=== PATIENT | female | born 2000 | race Caucasian/White ===

== ENCOUNTER 2024-09-07 12:47 | Outpatient (CLI) | payer BC, SELFPAY ==
--- NOTE | 2024-09-07 13:00 | CRLHL7_ITS ---
For Patients: As a result of the Cures Act, medical imaging exams and procedure reports are released immediately into your electronic medical record. You may view this report before your referring provider. If you have questions, please contact your health care provider. OB ULTRASOUND INDICATION: Dating, viability. TECHNIQUE: Real time whatley scale imaging of the fetus was performed. transvaginal imaging performed. LMP: 07/12/2024. DEDRA by LMP: 04/18/2025. GA: 8 w, 1 d. Previous US: No. CRL: 1.6 cm. 8 w 0 d. DEDRA: 04/19/2025. FHR: 167 BPM. Gestational sac: 2.9 cm. Appears within normal limits. Yolk sac: 3.2 mm. Appears within normal limits. Right ovary: 3.6 x 2.2 x 1.8 cm. CL. Left ovary: 2.5 x 1.2 x 1.5 cm. CL. IMPRESSION: Single living intrauterine measuring 8 weeks 0 days and sonographic due date 04/19/2025. Drew Rossi M.D. Diagnostic Radiologist [email or web address] STEVO/Dictated by: Drew Rossi MD @ 09/07/2024 8:55:00 PM (Electronically Signed)
== END 2024-09-07 12:48 | disposition home or self-care (01) ==
LOC: US 12:48
PROVIDERS: Visit Provider Advanced Practice Midwife
DX: Z34.91 Encounter for supervision of normal pregnancy, unspecified, first trimester (principal); Z3A.08 8 weeks gestation of pregnancy
CPT/HCPCS: 76817

== ENCOUNTER 2024-09-07 13:54 | Outpatient (CLI) | payer BC, SELFPAY ==
[2024-09-07 20:16] LABS: Chlamydia DNA Amplified* NOT DETECTED (No Detected); GC DNA Amplified* NOT DETECTED (No Detected)
== END 2024-09-07 13:55 | disposition home or self-care (01) ==
PROVIDERS: Visit Provider Advanced Practice Midwife
DX: Z34.91 Encounter for supervision of normal pregnancy, unspecified, first trimester (principal); Z3A.08 8 weeks gestation of pregnancy
CPT/HCPCS: 83020; 83021; 84439; 84443; 85660; 86592; 86703; 86704; 86706; 86762; 86787; 86803; 86850; 86900; 86901; 87086; 87340; 87491; 87591

== ENCOUNTER 2024-11-06 14:04 | Outpatient (CLI) | payer BC, SELFPAY | END 2024-11-06 14:05 | disposition home or self-care (01) | LOC: NFLDREF 11-11 11:49 | PROVIDERS: Visit Provider Advanced Practice Midwife | DX: Z34.92 Encounter for supervision of normal pregnancy, unspecified, second trimester (principal); Z83.49 Family history of other endocrine, nutritional and metabolic diseases; Z3A.16 16 weeks gestation of pregnancy | CPT/HCPCS: 84443 ==

== ENCOUNTER 2024-12-03 12:14 | Outpatient (CLI) | payer BC, SELFPAY ==
--- NOTE | 2024-12-03 12:15 | CRLHL7_ITS ---
For Patients: As a result of the 21st Century Cures Act, medical imaging exams and procedure reports are released immediately into your electronic medical record. You may view this report before your referring provider. If you have questions, please contact your health care provider. LMP: 07/12/2024. DEDRA by LMP: 04/18/2025. GA: 20w, 4d. Single. INDICATION: anatomy scan. CERVIX: Visualized. Measurement: 4.3 TA. POSITIONING: Breech/dyan breech. AMNIOTIC FLUID: 5.8 cm SDP. PLACENTA: Technique: Transabdominal. PLACENTA POSITION: Anterior. Placenta tip to internal os: 4.4 cm. Placental insertion: Central. DOPPLER: heart rate: 139 bpm. Umbilical cord: 3-vessel cord. Biometry: BPD: 4.9 cm. 20w, 6d, 61 percent. HC: 17.6 cm. 20w, 1d, 21 percent. AC: 16.2 cm. 21w, 2d, 66 percent. FL: 3.3 cm. 20w, 1d, 29 percent. FL/AC ratio: 20.24 percent. HC/AC ratio: 1.09. EFW: 372.14 g. Weight: 0 lbs, 13 oz. age by this US: 20w, 5d. DEDRA by this US: 04/17/2025. Percentile by DEDRA: 53 percent. SURVEY: Observed Structures Cerebellum: Yes. 2.1 cm; 21w 1d. Cisterna Magna: Yes. 3.6 mm. Nuchal Fold: Yes. 4.1 mm. Lateral Ventricle: Yes. 6.5 mm. CSP: Yes. Midline Falx: Yes. Choroid Plexus: Yes. Spine: Yes. Stomach: Yes. Abd Cord Insertion: Yes. Urinary Bladder: Yes. Kidneys: Yes. Diaphragm: Yes. Nose/lips: Yes. Orbital view: Yes. Profile: Yes. Upper Extremities: Yes. Lower Extremities: Yes. Hands: Yes. Feet: Yes. Four-Chamber Heart: Yes. LVOT: Yes. RVOT: Yes. 3VV: Yes. 3VTV: Yes. IMPRESSION: 1. Concordance of clinical and sonographic dating. 2. Normal anatomic survey. Drew Rossi M.D. Diagnostic Radiologist [email or web address] SAM/bhm / bM/Dictated by: Drew Rossi MD @ 12/03/2024 2:35:00 PM (Electronically Signed)
== END 2024-12-03 12:15 | disposition home or self-care (01) ==
LOC: US 12:14
PROVIDERS: Visit Provider Advanced Practice Midwife
DX: Z34.92 Encounter for supervision of normal pregnancy, unspecified, second trimester (principal); Z3A.20 20 weeks gestation of pregnancy
CPT/HCPCS: 76805

== ENCOUNTER 2025-01-25 10:40 | Outpatient (CLI) | payer BC, SELFPAY | END 2025-01-25 10:41 | disposition home or self-care (01) | LOC: NFLDREF 01-27 11:02 | PROVIDERS: Visit Provider Advanced Practice Midwife | DX: Z34.93 Encounter for supervision of normal pregnancy, unspecified, third trimester (principal) | CPT/HCPCS: 86592 ==

== ENCOUNTER 2025-02-01 08:16 | Outpatient (CLI) | payer BC, SELFPAY | END 2025-02-01 08:17 | disposition home or self-care (01) | LOC: NFLDREF 02-02 18:03 | PROVIDERS: Visit Provider Advanced Practice Midwife | DX: R73.09 Other abnormal glucose (principal) | CPT/HCPCS: 82951; 82952 ==

== ENCOUNTER 2025-03-26 09:09 | Outpatient (CLI) | payer BC, SELFPAY ==
[2025-03-27 10:15] LABS: Strep B DNA Probe Negative (Negative)
[2025-03-27 10:20] LABS: Strep B Susceptibility Needed? No
== END 2025-03-26 09:10 | disposition home or self-care (01) ==
LOC: NFLDREF 09:10
PROVIDERS: Visit Provider Physician Assistant
DX: Z34.93 Encounter for supervision of normal pregnancy, unspecified, third trimester (principal)
CPT/HCPCS: 87081; 87653